=== PATIENT | male | born 1955 | race Caucasian/White ===

== ENCOUNTER 2019-07-04 06:51 | Day surgery (SDC) | payer BC ==
[~2019-07-04 06:51] MED LIST: Dextrose 5%-0.45% NaCl 1,000 ML IV SCH; Midazolam 1 MG/ML 2 ML SDV ONE; Sodium Chloride 0.9% 10 ML Syringe FLUSH PRN; fentaNYL 100 MCG/2 ML SDV ONE
[2019-07-04] MEDS ORDERED: fentaNYL 100 MCG/2 ML SDV IV ONE ×4 (06:52→07:34)
[2019-07-04] MEDS ORDERED: Midazolam 1 MG/ML 2 ML SDV IV ONE ×6 (06:52→07:32)
[2019-07-04 09:48] VITALS: BP 111/72; PULSE 72
--- NOTE | 2019-07-04 11:58 | OR ---
DATE: 07/04/2019 PROCEDURE: Total colonoscopy. INSTRUMENT USED: [id number] Olympus video colonoscope. PREMEDICATIONS: Fentanyl 125 mcg intravenous, Versed 4 mg intravenous. Nasal O2 cannula. The procedure was done under pulse oximetry, BP recording, and monitor technician. INDICATION: The patient with previous colonic tubular adenoma. Surveillance colonoscopic examination is done for detection of any polypoid lesions and removal, endoscopic hemostasis therapy if needed. DESCRIPTION OF PROCEDURE: Initial rectal exam was unremarkable. Rigid anoscopy showed small internal hemorrhoids without bleeding from them. The colonoscope was passed with ease up to the ileocecal area. Photographs were taken of the normal-appearing cecum, identified by landmarks of appendiceal orifice and double-bulged ileocecal folds. No bleeding was noted from any of the visualized areas at the commencement of the examination. Bowel preparation was found to be adequate, [place] scale 2 in all the regions. No stricture. No vascular ectasia. No large isolated ulcerations seen. No evidence of diffuse inflammatory bowel disease in the form of friability, contact bleeding, or ulcerations. No polyp or tumor mass identified. Probing the proximal sides of folds and flexures using adequate distention and clearing up the stool material, withdrawal of the scope was made, cecum to rectum time over 6 minutes. No bleeding was noted from any of the visualized areas at the completion of examination. IMPRESSION: Internal hemorrhoids. The patient tolerated the procedure well. [facility] /[id number]
== END 2019-07-04 09:55 | disposition home or self-care (01) ==
LOC: DL.ENDO 06:51
PROVIDERS: ATTEND Internal Medicine Gastroenterology
DX: Z12.11 Encounter for screening for malignant neoplasm of colon (principal); K64.8 Other hemorrhoids; H61.23 Impacted cerumen, bilateral; N40.0 Benign prostatic hyperplasia without lower urinary tract symptoms; Z86.010 Personal history of colon polyps
CPT/HCPCS: 45378; J2250; J3010; J7042; G0121

== ENCOUNTER 2021-12-31 15:11 | Emergency (ER) | payer BC ==
[2021-12-31 15:10] LABS: ANION GAP 11.3 mEq/L (7-13); CHLORIDE,CL 108 mmol/L (98-107); ESTIMATED GFR 79 mL/min (>=60); SODIUM,NA 144 mmol/L (136-145)
[~2021-12-31 15:11] MED LIST changes: -Dextrose 5%-0.45% NaCl 1,000 ML IV SCH; +HYDROmorphone 1 MG/ML Syringe IVPUSH ONE; -Midazolam 1 MG/ML 2 ML SDV ONE; +Ondansetron 4 MG/2 ML SDV IVPUSH ONE; -fentaNYL 100 MCG/2 ML SDV ONE
[2021-12-31 15:26] LABS: PTT,PARTIAL THROMBOPLSTIN TIME 20.3 SEC (22.0-34.0)
[2021-12-31] MEDS ORDERED: fentaNYL 100 MCG/2 ML SDV IVPUSH ONE (15:29)
[2021-12-31] MEDS ORDERED: Ondansetron 4 MG/2 ML SDV IVPUSH ONE (15:44)
[2021-12-31] MEDS ORDERED: Metoclopramide 10 MG/2 ML SDV IVPUSH ONE (16:56)
== END 2021-12-31 17:00 | disposition home or self-care (01) ==
LOC: DL.ED 15:11
DX: S22.32XA Fracture of one rib, left side, initial encounter for closed fracture (principal); S01.312A Laceration without foreign body of left ear, initial encounter; W22.8XXA Striking against or struck by other objects, initial encounter
CPT/HCPCS: 12011; 36415; 70450; 70486; 71045; 71260; 72125; 74177; 80053; 80307; 82150; 83690; 84484; 85025; 85610; 85730; 93010; 96374; 96375; 96376; 99284; 99284-25